=== PATIENT | female | born 1940 | race Caucasian/White ===

== ENCOUNTER 2024-11-04 13:25 | Emergency (ER) | payer MEDICARE, SELFPAY ==
[2024-11-04 13:28] VITALS: BP 116/88; PULSE 80; RESP 16; TEMP 36.6; O2SAT 95; BMI 23.3
[2024-11-04 13:50] VITALS: RESP 18
--- NOTE | 2024-11-04 13:54 | PC.PHAR ---
Pt is resident at [facility]-admission 10/23/24.
--- NOTE | 2024-11-04 13:59 | W.ED.PSYCHS ---
HPI - Psych General: Chief Complaint: Psychiatric Symptoms Stated Complaint: Dementia Time Seen by Provider: 11/04/24 13:45 Source: RN notes reviewed Mode of arrival: EMS Limitations: other (Dementia) History of Present Illness: 84yo female presents from [facility] with history of dementia. [facility] and has reported to be aggressive. Unable to obtain any information from patient about current situation. Per nursing notes, patient was pretending to shoot the staff and has been acting this way for the past 5 days. Related Data Home Medications ?Medication ?Instructions ?Recorded ?Confirmed acetaminophen 500 mg tablet 1,000 mg PO Q6H PRN Pain 11/04/24 11/04/24 empagliflozin 10 mg tablet 10 mg PO DAILY 11/04/24 11/04/24 ferrous sulfate 325 mg (65 mg 325 mg PO DAILY 11/04/24 11/04/24 iron) tablet folic acid 1 mg tablet 1 mg PO DAILY 11/04/24 11/04/24 furosemide 20 mg tablet (Lasix) 20 mg PO DAILY 11/04/24 11/04/24 methimazole 10 mg tablet 10 mg PO DAILY 11/04/24 11/04/24 midodrine 5 mg tablet 5 mg PO TID 11/04/24 11/04/24 lgjzyscq-ywv-yjpth ac 400 1 tab PO DAILY 11/04/24 11/04/24 mcg-calcium carb 500 mg-vit K1 20 mcg tablet (Women's 50 Plus Daily Formula) nicotine 21 mg/24 hr daily 1 patch transdermal DAILY 11/04/24 11/04/24 transdermal patch pantoprazole 40 mg tablet,delayed 40 mg PO DAILY 11/04/24 11/04/24 release (Protonix) sodium zirconium cyclosilicate 10 10 g PO DAILY 11/04/24 11/04/24 gram oral powder packet Previous Rx's ?Medication ?Instructions ?Recorded cefdinir 300 mg capsule 300 mg PO BID 5 days #10 caps 11/04/24 Allergies Allergy/AdvReac Type Severity Reaction Status Date / Time amoxicillin Allergy Unknown Verified 11/04/24 15:54 Penicillins Allergy Unknown Verified 11/04/24 15:54 Review of Systems General: Reports: ROS unobtainable due to mental status (Dementia) Physical Exam Const: COMMON NORMALS: no acute distress and alert EXAM LIMITATIONS: other limitations (dementia) GENERAL APPEARANCE: comfortable ORIENTATION/CONSCIOUSNESS: Yes awake OTHER: Patient is sitting upright on the stretcher noted to be fidgeting with cords and monitoring equipment attached. Patient is stating that she is wanting to buy a house for a baby. No aggression noted during exam. HENMT: COMMON NORMALS: normocephalic and atraumatic HEAD & SCALP: normocephalic and atraumatic; no Smith's sign and no raccoon eyes Neck/C-Spine: COMMON NORMALS: full ROM Chest: CHEST: Yes Symmetrical chest wall rise Resp: COMMON NORMALS: normal respiratory effort and clear to auscultation bilaterally EFFORT & INSPECTION: Yes able to speak in complete sentences and Yes symmetric chest movement AUSCULTATION: clear to auscultation bilaterally Cardio: COMMON NORMALS: regular rate RATE: regular rate Neuro: ADRIANA COMA SCALE: GCS not evaluated (dementia, at baseline) SENSORIUM/ORIENTATION: Yes alert Psych: ATTITUDE: Yes calm MEMORY/COGNITION: Yes other (dementia) Course Vital Signs: Vital signs: Vital Signs Temperature 97.9 F 11/04/24 13:28 Pulse Rate 80 11/04/24 13:28 Respiratory Rate 18 11/04/24 14:57 Blood Pressure 116/88 11/04/24 13:28 Pulse Oximetry 95 11/04/24 13:28 Oxygen Delivery Me thod Room Air 11/04/24 13:28 MDM - Psych Medical Decision Making 84yo female presents from [facility] with history of dementia. Patient has been at the jail for 1 week and has reported to be aggressive. Unable to obtain any information from patient about current situation. Per nursing notes, patient was pretending to shoot the staff and has been acting this way for the past 5 days. Patient is nontoxic in appearance. Vital signs are stable. No leukocytosis, white blood cell count is 5.91. Hemoglobin is 10.3, no previous for comparison. Platelets are in the normal range. No electrolyte, renal, or significant hepatic abnormalities noted. UA obtained through straight cath is nitrite positive with 2+ leukocyte esterase, greater than 100 white blood cells. Urine microscopy with 4+ bacteria, consistent with urinary tract infection. Will proceed with ceftriaxone while in the emergency department and prescription for cefdinir. UTI likely patient's behavior has acutely changed. Patient will be discharged back to her home facility with recommendations to have follow-up with her doctor in the next several days. Return precautions provided on paperwork due to patient's dementia status and no family at bedside Medical Records I reviewed the patient's medical records. Lab Data I reviewed the patient's lab results. 11/04/24 14:32 11/04/24 14:32 Laboratory Results WBC 5.91 10^3/uL (3.29-11.43) 11/04/24 14:32 RBC 3.30 10^6/uL (3.85-5.65) L 11/04/24 14:32 Hgb 10.30 g/dL (11.27-16.99) L 11/04/24 14:32 Hct 32.7 % (36-47) L 11/04/24 14:32 MCV 99.1 fl (85-98) H 11/04/24 14:32 MCH 31.2 pg (27-33) 11/04/24 14:32 MCHC 31.5 g/dL (30-55) 11/04/24 14:32 RDW 16.2 % (12.1-15.1) H 11/04/24 14:32 Plt Count 252 10^3/cmm (157-399) 11/04/24 14:32 MPV 9.4 fL (7.4-10.4) 11/04/24 14:32 Neut % (Auto) 73.9 % 11/04/24 14:32 Lymph % (Auto) 13.5 % 11/04/24 14:32 [place] % (Auto) 9.3 % 11/04/24 14:32 Eos % (Auto) 2.2 % 11/04/24 14:32 Baso % (Auto) 0.8 % 11/04/24 14:32 Neut # (Auto) 4.36 10^3/uL (1.8-7.7) 11/04/24 14:32 Lymph # (Auto) 0.8 10^3/uL (0.8-4.8) 11/04/24 14:32 [place] # (Auto) 0.6 10^3/uL (0.2-0.9) 11/04/24 14:32 Eos # (Auto) 0.1 10^3/uL (0.0-0.8) 11/04/24 14:32 Baso # (Auto) 0.1 10^3/uL (0.0-0.1) 11/04/24 14:32 Nucleated RBC % (auto) 0 % 11/04/24 14:32 Nucleated RBCs # 0.0 /100WBC 11/04/24 14:32 Sodium 143 mmol/L (136-145) 11/04/24 14:32 Potassium 3.6 mmol/L (3.5-5.1) 11/04/24 14:32 Chloride 106 mmol/L (98-107) 11/04/24 14:32 Carbon Dioxide 26 mmol/L (22-29) 11/04/24 14:32 Anion Gap 14.6 (5-19) 11/04/24 14:32 BUN 19 mg/dL (8-23) 11/04/24 14:32 Creatinine 0.5 mg/dL (0.5-0.9) 11/04/24 14:32 GFR Calculation Not Reportable 11/04/24 14:32 Glucose 90 mg/dL (65-115) 11/04/24 14:32 Calculated Osmolality 298 mOsm/kg (285-295) H 11/04/24 14:32 Calcium 9.1 mg/dL (8.5-10.5) 11/04/24 14:32 Total Bilirubin 0.4 mg/dL (0.15-1.2) 11/04/24 14:32 AST 18 U/L (0-32) 11/04/24 14:32 ALT 19 U/L (0-33) 11/04/24 14:32 Alkaline Phosphatase 225 U/L (35-105) H 11/04/24 14:32 Total Protein 7.0 g/dL (6.6-8.7) 11/04/24 14:32 Albumin 3.6 g/dL (3.5-5.2) 11/04/24 14:32 Globulin 3.4 g/dL (1.3-4.6) 11/04/24 14:32 Urine Color Yellow (Yellow) 11/04/24 15:17 Urine Appearance Cloudy (CLEAR) A 11/04/24 15:17 Urine pH 7.0 (5-7) 11/04/24 15:17 Ur Specific [place] 1.020 (1.005-1.030) 11/04/24 15:17 Urine Protein 1+ (Negative) A 11/04/24 15:17 Urine Glucose (UA) Negative (Normal) 11/04/24 15:17 Urine Ketones Negative (Negative) 11/04/24 15:17 Urine Blood 1+ (Negative) A 11/04/24 15:17 Urine Nitrate Positive (Negative) A 11/04/24 15:17 Urine Bilirubin Negative (Negative) 11/04/24 15:17 Urine Urobilinogen 1.0 mg/dL (Negative) 11/04/24 15:17 Ur Leukocyte Esterase 2+ (Negative) A 11/04/24 15:17 Urine RBC 0-2 /hpf (0-2) 11/04/24 15:17 Urine WBC >100 /hpf (0-5) H 11/04/24 15:17 Ur Squamous Epith Cells 0-5 /hpf (0-5) 11/04/24 15:17 Amorphous Sediment Not Reportable 11/04/24 15:17 Urine Bacteria 4+ /hpf (NONE) H 11/04/24 15:17 Hyaline Casts 0-4 /lpf H 11/04/24 15:17 No radiology studies performed this visit Discharge Plan Discharge Patient Disposition: Home Clinical Impression: Acute cystitis without hematuria Condition: Stable Prescriptions: New cefdinir 300 mg capsule 300 mg PO BID 5 Days Qty: 10 0RF No Action midodrine 5 mg Tablet 5 mg PO TID Rx Instructions: do not give last dose of day after 6PM or within 4 hrs of bedtime acetaminophen 500 mg Tablet 1,000 mg PO Q6H PRN (Reason: Pain) pantoprazole [Protonix] 40 mg Tablet,Delayed Release (Dr/Ec) 40 mg PO DAILY ferrous sulfate 325 mg (65 mg iron) Tablet 325 mg PO DAILY nicotine 21 mg/24 hr Patch 24 Hour 1 patch TRANSDERMAL DAILY folic acid 1 mg Tablet 1 mg PO DAILY furosemide [Lasix] 20 mg Tablet 20 mg PO DAILY methimazole 10 mg Tablet 10 mg PO DAILY Women's 50 Plus Daily Formula 400 mcg-500 mg calcium-20 mcg Tablet 1 tab PO DAILY empagliflozin 10 mg Tablet 10 mg PO DAILY sodium zirconium cyclosilicate 10 gram Powder In Packet 10 g PO DAILY Discharge Orders: Discharge ED (Routine); Ordered 11/04/24 Ordered By: Josiah Holliday Patient Instructions: Urinary Tract Infection in Older Adults (ED) Activity Restrictions/Additional Instructions: Urinary tract infection noted on workup today, which is likely contributing to the acute change in demeanor Ceftriaxone provided in the emergency department and prescription for cefdinir provided Urine culture is currently pending. Please follow-up with primary care in the next 2 to 3 days Return to the emergency department if rapid worsening symptoms and as needed Print Language: Luxembourger Coding Level of Care Code ED Dialysis Clinical Manager for Hom[facility] Ballesteros
[2024-11-04 14:39] LABS: Basophils # 0.1 10^3/uL (0.0-0.1); Basophils % 0.8 %; Eosinophils # 0.1 10^3/uL (0.0-0.8); Eosinophils % 2.2 %; Hematocrit 32.7 % (36-47); Lymphocytes # 0.8 10^3/uL (0.8-4.8); Lymphocytes % 13.5 %; Mean Corpuscular HGB Conc 31.5 g/dL (30-55); Mean Corpuscular Hemoglobin 31.2 pg (27-33); Mean Corpuscular Volume 99.1 fl (85-98); Mean Platelet Volume 9.4 fL (7.4-10.4); Monocytes # 0.6 10^3/uL (0.2-0.9); Monocytes % 9.3 %; Neutrophils # 4.36 10^3/uL (1.8-7.7); Neutrophils % 73.9 %; Nucleated Red Blood Cells % 0 %; Platelet Count 252 10^3/cmm (157-399); Red Cell Distribution Width 16.2 % (12.1-15.1); White Blood Count 5.91 10^3/uL (3.29-11.43)
[2024-11-04 14:57] VITALS: RESP 18
[2024-11-04 15:00] LABS: Alanine Aminotransferase 19 U/L (0-33); Albumin Level 3.6 g/dL (3.5-5.2); Alkaline Phosphatase 225 U/L (35-105); Anion Gap 14.6 (5-19); Aspartate Amino Transferase 18 U/L (0-32); Blood Urea Nitrogen 19 mg/dL (8-23); Calcium 9.1 mg/dL (8.5-10.5); Carbon Dioxide 26 mmol/L (22-29); Chloride 106 mmol/L (98-107); Creatinine Clr Calc Pharmacy 51.0128; Globulin 3.4 g/dL (1.3-4.6); Glucose 90 mg/dL (65-115); Osmolality Calculated 298 mOsm/kg (285-295); Potassium 3.6 mmol/L (3.5-5.1); Sodium 143 mmol/L (136-145); Total Bilirubin 0.4 mg/dL (0.15-1.2)
[2024-11-04 15:30] LABS: Bilirubin Urine Negative (Negative); Blood Urine 1+ (Negative); Glucose Urine UA Negative (Normal); Ketones Urine Negative (Negative); Leukocyte Esterase Urine 2+ (Negative); Nitrate Urine Positive (Negative); Protein Urine 1+ (Negative); Urine Appearance Cloudy (CLEAR); Urine Color Yellow (Yellow)
[2024-11-04 15:33] LABS: Add Urine Microscopic? YES; Bacteria Urine 4+ /hpf; Hyaline Casts Urine 0-4 /lpf; RBC Urine 0-2 /hpf (0-2); Squamous Epithelial Cell Urine 0-5 /hpf (0-5); WBC Urine >100 /hpf (0-5)
[2024-11-04 15:42] LABS: Add Urine Culture? Yes
[2024-11-04 16:29] VITALS: RESP 18
--- NOTE | 2024-11-04 16:29 | PC.NURSE ---
pt report given to [facility] and update given to son. [facility] contacted for transport
[2024-11-04] MEDS: cefTRIAXone 1,000 MG in water for injection-sterile 2.1 ML 1 MG IM (16:43)
[2024-11-04 16:48] VITALS: BP 108/78; PULSE 88; O2SAT 98
== END 2024-11-04 16:52 | disposition home or self-care (01) ==
PROVIDERS: Emergency Provider Nurse Practitioner
DX: N30.00 Acute cystitis without hematuria (principal)
CPT/HCPCS: 36415; 80053; 81001; 85025; 87077; 87086; 87186; 96372; 99284; J0696